=== PATIENT | female | born 1970 | race Caucasian/White ===

== ENCOUNTER 2018-11-02 04:40 | Emergency (ER) | payer OTHER ==
[2018-11-02] MEDS ORDERED: ONDANSETRON 4 MG INJ IV (05:51)
[2018-11-02] MEDS ORDERED: morphine 4 MG/ML VIAL IV (05:51)
== END 2018-11-02 10:15 | disposition home or self-care (01) ==
LOC: E/R 04:40
DX: S01.81XA Laceration without foreign body of other part of head, initial encounter (principal); Y08.89XA Assault by other specified means, initial encounter
CPT/HCPCS: 12011; 70450; 70486; 72125; 73110-LT; 73130-LT; 73562; 99284-25